=== PATIENT | female | born 1995 | race Caucasian/White ===

== ENCOUNTER → 2016-06-22 | Outpatient (CLI) | payer BC | LOC: MC.RAD 08:00 | DX: Z12.39 Encounter for other screening for malignant neoplasm of breast (principal) ==

== ENCOUNTER 2016-10-08 04:54 | Emergency (ER) | payer BC ==
[~2016-10-08] VITALS: Ht 165.1 cm; Wt 54.5 kg
[2016-10-08 04:59] VITALS: TEMP 97.7
[2016-10-08 05:48] LABS: PH 7 (5-8); SQUAMOUS EPITHELIAL 0-2 /hpf; URINE APPEARANCE Clear; URINE BACTERIA None Seen /hpf; URINE BILIRUBIN Negative (NEGATIVE); URINE BLOOD Negative (NEGATIVE); URINE COLOR Straw; URINE GLUCOSE Negative (NEGATIVE); URINE KETONE Negative (NEGATIVE); URINE RBC 0-2 /hpf; URINE UROBILINOGEN Negative (NEGATIVE); URINE WBC 0-2 /hpf
[2016-10-08 05:52] LABS: AMPHETAMINE URINE POSITIVE; BARBITURATES URINE NEGATIVE; BENZODIAZEPINES URINE NEGATIVE; BUPRENORPHINE URINE NEGATIVE; METHADONE URINE NEGATIVE; OPIATES URINE NEGATIVE; OXYCODONE URINE NEGATIVE; PHENCYCLIDINE URINE NEGATIVE; PROPOXYPHENE URINE NEGATIVE; THC CANNABINOIDS URINE NEGATIVE
[2016-10-08 05:52] LABS: BASO # 0.1 (0.0-0.2); BASO % 0.5 % (0.0-2.0); EOS # 0.1 (0.0-0.7); EOS % 0.5 % (0-4.0); GRAN # 9.2 (1.4-6.5); GRAN % 81.1 % (42.2-75.2); HEMATOCRIT 44.5 % (37.0-47.0); HEMOGLOBIN 15.1 g/dl (12.5-16.0); LYMPH # 1.5 (1.2-3.4); LYMPH % 13.4 % (20.0-51.0); MEAN CELL VOLUME 92 fl (80.0-100.0); MEAN CORPUSCULAR HEMOGLOBIN 31 pg (27.0-31.0); MEAN CORPUSCULAR HGB CONC 34 g/dl (33.0-37.0); MEAN PLATELET VOLUME 9.3 fl (7.4-10.4); MONO # 0.5 (0.1-0.6); MONO % 4.1 % (1.7-9.3); PLATELET COUNT 251 K/mm3 (130-400); RED BLOOD COUNT 4.83 M/mm3 (4.10-5.30); REDCELL DISTRIBUTION WIDTH-CV 12.2 % (11.5-14.5); WHITE BLOOD COUNT 11.4 K/mm3 (4.8-10.8)
[2016-10-08 06:06] LABS: ADJUSTED CALCIUM 8.5 mg/dL (8.4-10.2); ALANINE AMINOTRANSFERASE 27 U/L (9-52); ALBUMIN 4.7 gm/dL (3.5-5.0); ALKALINE PHOSPHATASE 72 U/L (50-136); ANION GAP 11 mmol/L (7-16); BILIRUBIN,TOTAL 0.5 mg/dL (0.0-1.0); BLOOD UREA NITROGEN 4 mg/dL (7-17); CALCIUM 9.1 mg/dL (8.4-10.2); CARBON DIOXIDE 28 mmol/L (22-30); CHLORIDE 104 mmol/L (98-107); CREATININE, serum 0.64 mg/dL (0.52-1.25); GLUCOSE 110 mg/dL (74-106); POTASSIUM 3.7 mmol/L (3.4-5.0); SODIUM 142 mmol/L (137-145); TOTAL PROTEIN 8.1 gm/dL (6.4-8.2)
[2016-10-08 06:08] LABS: ACETAMINOPHEN < 10 ug/mL (10-30); SALICYLATE < 1.0 mg/dL
[2016-10-08 13:58] VITALS: BP 110/70
[2016-10-08 15:22] VITALS: PULSE 90
== END 2016-10-08 15:23 | disposition home or self-care (01) ==
LOC: COL.ER 04:54
PROVIDERS: Emergency Medicine
DX: R45.851 Suicidal ideations (principal); F32.9 Major depressive disorder, single episode, unspecified; F41.9 Anxiety disorder, unspecified; F17.210 Nicotine dependence, cigarettes, uncomplicated

== ENCOUNTER 2016-10-28 04:53 | Emergency (ER) | payer BC ==
[~2016-10-28] VITALS: Ht 165.1 cm; Wt 54.5 kg
[2016-10-28 05:02] VITALS: BP 140/79
[2016-10-28 08:36] VITALS: PULSE 99
== END 2016-10-28 08:36 | disposition home or self-care (01) ==
LOC: COL.ER 04:53
DX: S51.012A Laceration without foreign body of left elbow, initial encounter (principal); S51.811A Laceration without foreign body of right forearm, initial encounter; W25.XXXA Contact with sharp glass, initial encounter; Y92.009 Unspecified place in unspecified non-institutional (private) residence as the place of occurrence of the external cause

== ENCOUNTER → 2017-04-05 | Outpatient (CLI) | payer BC | LOC: BHSO 10:58 | DX: F10.20 Alcohol dependence, uncomplicated (principal) ==